=== PATIENT | male | born 1955 | race Two or more races ===

== ENCOUNTER 2017-05-25 11:57 | Inpatient (IN) | payer OTHER ==
--- NOTE | 2017-05-25 16:00 | HP ---
CIWA Score - CIWA Score Nausea/Vomitin Muscle Tremors: 5 Anxiety: 4-Mod. Anxious/Guarded Agitation: 0-Normal Activity Paroxysmal Sweats: 4-Forehead w/Sweat Beads Orientation: 0-Oriented Tacttile Disturbances: 3-Moderate Itch/Numb/Burn Auditory Disturbances: 1-Very Mild Visual Disturbances: 2-Mild Sensitivity Headache: 3-Moderate CIWA-Ar Total Score: 25 Admission ROS BHS - HPI Chief Complaint: I am here to detox from alcohol Allergies/Adverse Reactions: Allergies Allergy/AdvReac Type Severity Reaction Status Date / Time No Known Allergies Allergy Verified 05/25/17 15:21 History of Present Illness: 61 yo male with extensive hx of ETOH dependence and past DM. Reports no DM medications for over a year. Last detox December 2015 and reports was attending AA meetings. Reports visit to the emergency room about two days ago for intoxication and was medicated. Longest period of sobriety 8 months. Exam Limitations: Intoxication - Ebola screening Have you traveled outside of the country in the last 21 days: No (N) Have you had contact with anyone from an Ebola affected area: No Have you been sick,other than usual withdrawal symptoms: No Do you have a fever: No - Review of Systems Constitutional: Chills, Loss of Appetite, Changes in sleep, Unintentional Wgt. Loss EENT: reports: No Symptoms Reported, Other (uses glasses) Cardiac: reports: Lightheadedness GI: reports: Nausea, Poor Appetite, Vomiting (Reports vomitting yesterday 3x) Musculoskeletal: reports: Joint Pain Integumentary: reports: Pruritus Neuro: reports: Paresthesia, Tremors, Other (reports syncope x 2 years ago) Endocrine: reports: Excessive Sweating, Other (chills) Hematology: reports: No Symptoms Reported Psychiatric: reports: Orientated x3, Anxious, Depressed Other Systems: Reviewed and Negative Patient History - Patient Medical History Hx Anemia: No Hx Asthma: No Hx Chronic Obstructive Pulmonary Disease (COPD): No Hx Cancer: No Hx Cardiac Disorders: No Hx Congestive Heart Failure: No Hx Hypertension: No Hx Hypercholesterolemia: No Hx Pacemaker: No HX Cerebrovascular Accident: No Hx Seizures: No Hx Dementia: No Hx Diabetes: Yes ([id number]) Hx Gastrointestinal Disorders: No Hx Liver Disease: No Hx Genitourinary Disorders: No Hx Sexually Transmitted Disorders: No Hx Renal Disease (ESRD): No Hx Thyroid Disease: No Hx Human Immunodeficiency Virus (HIV): No Hx Hepatitis C: No Hx Depression: Yes Hx Suicide Attempt: No Hx Bipolar Disorder: No Hx Schizophrenia: No - Patient Surgical History Past Surgical History: No Hx Neurologic Surgery: No Hx Cataract Extraction: No Hx Cardiac Surgery: No Hx Lung Surgery: No Hx Breast Surgery: No Hx Breast Biopsy: No Hx Abdominal Surgery: No Hx Appendectomy: No Hx Cholecystectomy: No Hx Genitourinary Surgery: No Hx Section: No Hx Orthopedic Surgery: No Anesthesia Reaction: No - PPD History Previous Implant?: Yes (negative chest Chest x- ray 12/2015) Documented Results: Positive w/proof Implanted On Prior [facility] Admission?: Yes PPD to be Administered?: Yes - Reproductive History Patient is a Female of Child Bearing Age (11 -55 yrs old): No (Male ) - Smoking Cessation Smoking history: Current every day smoker Have you smoked in the past 12 months: Yes Aproximately how many cigarettes per day: 10 Hx Chewing Tobacco Use: No Initiated information on smoking cessation: Yes 'Breaking Loose' booklet given: 05/25/17 - Substance & Tx. History Hx Substance Use: Yes Substance Use Type: Cocaine Hx Substance Use Treatment: Yes (Last Detox at [facility] 12/2015) - Substances Abused Alcohol Route: Oral Frequency: Daily Amount used: RUM(2 PINTS) Age of first use: 26 Date of Last Use: 05/23/17 Cocaine Route: Inhalation Amount used: 14 grams Age of first use: 22 Date of Last Use: 04/05/17 Family Disease History - Family Disease History Family Disease History: CA: Father ( Cancer Protate), Mother ( Breast Cancer ), Other: Sister (alcoholic ) Admission Physical Exam S - Vital Signs Vital Signs: Vital Signs - 24 hr 05/25/17 13:15 Temperature 97.8 F Pulse Rate 68 Respiratory 18 Rate Blood Pressure 171/94 - Physical General Appearance: Yes: Alcohol on Breath, Tremorous, Sweating, Anxious HEENTM: Yes: Hearing grossly Normal, Normocephalic, Normal Voice, ARELY, Pharynx Normal Respiratory: Yes: Chest Non-Tender, Lungs Clear, Normal Breath Sounds, No Respiratory Distress, No Accessory Muscle Use Neck: Yes: No masses,lesions,Nodules, Trachea in good position Breast: Yes: Breast Exam Deferred Cardiology: Yes: Regular Rhythm, Regular Rate, S1, S2 Abdominal: Yes: Normal Bowel Sounds, Non Tender, Flat, Soft Genitourinary: Yes: Within Normal Limits (No urinary symptoms reported) Back: Yes: Within Normal Limits Musculoskeletal: Yes: full range of Motion, Gait Steady, Pelvis Stable Neurological: Yes: Within Normal Limits, cover stripper II-XII NML intact, Fully Oriented, Motor Strength 5/5, Normal Mood/Affect, Normal Response Integumentary: Yes: Within Normal Limits, Normal Color, Dry, Warm, Diaphoresis, Other (poor skin turgor) Lymphatic: Yes: Within Normal Limits - Diagnostic (1) Dehydration symptoms Current Visit: Yes Status: Acute (2) Elevated blood pressure reading in office with diagnosis of hypertension Current Visit: Yes Status: Acute (3) Alcohol dependence with withdrawal Current Visit: Yes Status: Acute Qualifiers: Complication of substance-induced condition: uncomplicated Qualified Code(s ): F10.230 - Alcohol dependence with withdrawal, uncomplicated (4) Depression (emotion) Current Visit: No Status: Chronic Qualifiers: Depression Type: major depressive disorder Major depression recurrence: recurrent Active/Remission status: currently active Major depression episode severity: moderate Qualified Code(s): F33.1 - Major depressive disorder, recurrent, moderate Comment: 3 over dose suicidal attempted last attempted 2013 (5) Diabetes mellitus Current Visit: No Status: Chronic Qualifiers: Diabetes mellitus type: type 2 Diabetes mellitus complication status: without complication Diabetes mellitus terminal gauger supervisor insulin use: without [place] [facility] use Qualified Code(s): E11.9 - Type 2 diabetes mellitus without complications (6) Nicotine dependence Current Visit: No Status: Chronic Qualifiers: Nicotine product type: cigarettes Substance use status: uncomplicated Qualified Code(s): F17.210 - Nicotine dependence, cigarettes, uncomplicated (7) History of positive PPD Current Visit: Yes Status: Chronic Cleared for Admission BHS - Detox or Rehab S Level of Care: Medically Managed Detox Regimen/Protocol: Librium S Breath Alcohol Content Breath Alcohol Content: 0 Vital Signs - Vital Signs Vital Signs Refused: No Temperature: 97.8 F Temperature Source: Oral Pulse Rate: 68 Respiratory Rate: 18 Blood Pressure: 171/94 BP Location: Right Arm Blood Pressure Position: Sitting - Height Height: 5 ft 5 in - Weight Weight: 178 kg Weight Measurement Method: Standing Scale Body Mass Index (BMI): 65.2 - Bowel Function Bowel Movement: Yes Urine Drug Screen - Results Drug Screen Negative: No Urine Drug Screen Results: BZO-Benzodiazepines
[2017-05-25] MEDS ORDERED: IBUPROFEN 400 MG TABLET (FP) PO PRN (16:21)
[2017-05-25] MEDS ORDERED: NICOTINE POLACRILEX 2 MG GUM BUC PRN (16:21)
[2017-05-25] MEDS ORDERED: P-EPHED 60MG/TRIPROLIDI 2.5MG TABLET PO PRN (16:21)
[2017-05-25] MEDS ORDERED: chlordiazePOXIDE HCL 25 MG CAPSULE PO PRN (16:21)
[2017-05-25] MEDS ORDERED: MAG HYDROX/AL HYDROX/SIMETH 30 ML UNIT-DOSE CUP PO PRN (16:21)
[2017-05-25] MEDS ORDERED: MAGNESIUM HYDROX 2400MG/30ML ORAL SUSPENSION 30 ML CUP PO PRN (16:21)
[2017-05-25] MEDS ORDERED: chlordiazePOXIDE HCL 25 MG CAPSULE PO ONE (16:21)
[2017-05-25] MEDS ORDERED: MENTHOL/PHENOL 1 EACH UD MM PRN (16:21)
[2017-05-25] MEDS ORDERED: hydrOXYzine PAMOATE 50 MG CAPSULE (FP) PO PRN (16:21)
[2017-05-25] MEDS ORDERED: ACETAMINOPHEN 325 MG TABLET (FP) PO PRN (16:21)
[2017-05-25] MEDS ORDERED: LOPERAMIDE HCL 2 MG CAPSULE PO PRN (16:21)
[2017-05-25] MEDS ORDERED: MAGNESIUM CITRATE 300 ML BOTTLE PO PRN (16:21)
[2017-05-25] MEDS ORDERED: guaiFENesin/D-METHORPHAN HB 10 ML UNIT-DOSE CUPS PO PRN (16:21)
[2017-05-25 16:36] VITALS: BMI 65.2
[2017-05-25] MEDS: INSULIN SLIDING SCALE (NOVOLOG) 1 VIAL SQ SCH (18:01)
[2017-05-25] MEDS: NICOTINE 14 MG/24 HOURS TOPICAL PATCH TD SCH (18:03)
[2017-05-25] MEDS: THIAMINE HCL 100 MG TABLET (FP) PO SCH (22:25)
[2017-05-25] MEDS: chlordiazePOXIDE HCL 25 MG CAPSULE PO SCH ×2 (22:25→22:28)
[2017-05-26] MEDS ORDERED: chlordiazePOXIDE HCL 25 MG CAPSULE PO PRN (00:35)
[2017-05-26] MEDS: chlordiazePOXIDE HCL 25 MG CAPSULE PO SCH ×5 (01:30→22:22)
[2017-05-26] MEDS ORDERED: chlordiazePOXIDE HCL 25 MG CAPSULE PO SCH (05:00)
[2017-05-26] MEDS: INSULIN SLIDING SCALE (NOVOLOG) 1 VIAL SQ SCH ×2 (06:26→17:44)
--- NOTE | 2017-05-26 07:16 | CONSULT ---
[facility] Psychiatric Consult - Data Date of interview: 05/26/17 Admission source: A friend from meeting Identifying data: Mr Reinoso is a 61 years old single male, unemployed, domiciled seeking detox treatment for alcohol and cocaine Substance Abuse History: Reports history of alcohol and cocaine use. He started using cocaine at age 22 and drinking alcohol at 26, consumes 14 grams of cocaine and 2 pints of rum daily. Last drank alcohol on 05/24/17 and used cocaine on 04/05/17 Medical History: Significant for type 2 diabetes mellitus and treament for prophylactic treament for TB. Smokes 10 cigarettes daily. Psychiatric History: Denies history of previous psychiatric treatment Physical/Sexual Abuse/Trauma History: Denies history of verbal, physical or sexual abuse as well as DV relationship Additional Comment: Reports history multiple previous misdemeanor arrests. Denies being on parole/probation at present Mental Status Exam - Mental Status Exam Alert and Oriented to: Time, Place, Person Cognitive Function: Fair Patient Appearance: Well Groomed Mood: Hopeful, Euthymic Patient Behavior: Cooperative Speech Pattern: Clear Voice Loudness: Normal Thought Process: Intact, Goal Oriented Thought Disorder: Not Present Hallucinations: Denies Suicidal Ideation: Denies Homicidal Ideation: Denies Insight/Judgement: Poor Sleep: Poorly Appetite: Good Muscle strength/Tone: Normal Gait/Station: Normal Psychiatric Findings - Problem List ([place] 1, 2,3) (1) Alcohol dependence with withdrawal Current Visit: Yes Status: Acute Qualifiers: Complication of substance-induced condition: uncomplicated Qualified Code(s ): F10.230 - Alcohol dependence with withdrawal, uncomplicated (2) Nicotine dependence Current Visit: No Status: Chronic Qualifiers: Nicotine product type: cigarettes Substance use status: uncomplicated Qualified Code(s): F17.210 - Nicotine dependence, cigarettes, uncomplicated (3) Elevated blood pressure reading in office with diagnosis of hypertension Current Visit: Yes Status: Acute (4) History of positive PPD Current Visit: Yes Status: Chronic (5) Diabetes mellitus Current Visit: No Status: Chronic Qualifiers: Diabetes mellitus type: type 2 Diabetes mellitus complication status: without complication Diabetes mellitus fdc insulin use: without fdc use Qualified Code(s): E11.9 - Type 2 diabetes mellitus without complications (6) Lyme disease Current Visit: No Status: Chronic Comment: treated (7) Cocaine dependence Current Visit: Yes Status: Acute - Initial Treatment Plan Initial Treatment Plan: Continue inpatient detoxification
[2017-05-26] MEDS: PRENATAL VITAMINS W/ FOLIC ACID TABLET (FP) PO SCH (10:12)
[2017-05-26] MEDS: NICOTINE 14 MG/24 HOURS TOPICAL PATCH TD SCH (10:13)
[2017-05-26 10:24] LABS: HEMATOCRIT 47.7 % (35.4-49); HEMOGLOBIN 15.6 GM/dL (11.7-16.9); MCH 31.6 pg (25.7-33.7); MCHC 32.7 g/dl (32.0-35.9); MEAN CELL VOLUME 96.7 fl (80-96); PLATELET COUNT 203 K/MM3 (134-434); RBC 4.94 M/mm3 (4.00-5.60); RDW 13.7 % (11.9-15.9); WHITE BLOOD COUNT 5.2 K/mm3 (4.0-10.0)
[2017-05-26 10:37] LABS: CHLORIDE 103 mmol/L (98-107); POTASSIUM 3.8 mmol/L (3.5-5.1); SODIUM 140 mmol/L (136-145)
[2017-05-26 10:45] LABS: ALK PHOS 74 U/L (45-117); ANION GAP 7 (8-16); BILIRUBIN,TOTAL 0.8 mg/dL (0.2-1.0); BLOOD UREA NITROGEN 11 mg/dL (7-18); CALCIUM 9.1 mg/dL (8.5-10.1); CO2 30 mmol/L (21-32); CREATININE 0.8 mg/dL (0.7-1.3); GLUCOSE,RANDOM 84 mg/dL (74-106); SGOT/AST 138 U/L (15-37); SGPT/ALT 160 U/L (12-78); TOT PROT 8.8 g/dl (6.4-8.2)
[2017-05-26 12:35] LABS: URINE APPEARANCE CLEAR; URINE BILIRUBIN NEGATIVE (NEGATIVE); URINE BLOOD NEGATIVE (NEGATIVE); URINE COLOR YELLOW; URINE GLUCOSE (UA) NEGATIVE (NEGATIVE); URINE KETONE NEGATIVE (NEGATIVE); URINE LEUK ESTERASE NEGATIVE (NEGATIVE); URINE NITRITE NEGATIVE (NEGATIVE); URINE PROTEIN NEGATIVE (NEGATIVE); URINE UROBILINOGEN NEGATIVE mg/dL (0.2-1.0)
--- NOTE | 2017-05-26 12:52 | EKG ---
Test Reason : Blood Pressure : / mmHG Vent. Rate : 068 BPM Atrial Rate : 068 BPM P-R Int : 150 ms QRS Dur : 092 ms QT Int : 408 ms P-R-T Axes : 063 000 050 degrees QTc Int : 433 ms NORMAL SINUS RHYTHM NORMAL ECG NO PREVIOUS ECGS AVAILABLE Confirmed by Barrington Wilson ([id number]) on 05/26/2017 12:52:22 PM Referred By: Confirmed By:Barrington Wilson
--- NOTE | 2017-05-26 14:07 | PN ---
S CIWA - CIWA Score Nausea/Vomitin Muscle Tremors: 3 Anxiety: 4-Mod. Anxious/Guarded Agitation: 4-Moderately Restless Paroxysmal Sweats: 4-Forehead w/Sweat Beads Orientation: 0-Oriented Tacttile Disturbances: 0-None Auditory Disturbances: 0-None Visual Disturbances: 0-None Headache: 0-None Present CIWA-Ar Total Score: 17 BHS Progress Note (SOAP) Subjective: Sweating, anxious, restless Objective: 05/26/17 14:06 Last Vital Signs Temp Pulse Resp BP Pulse Ox 97.9 F 103 H 18 122/83 05/26/17 13:08 05/26/17 13:08 05/26/17 13:08 05/26/17 13:08 Laboratory Tests 05/25/17 05/25/17 05/26/17 15:44 17:56 05:20 WBC RBC Hgb Hct MCV MCH MCHC RDW Plt Count MPV Sodium Potassium Chloride Carbon Dioxide Anion Gap BUN Creatinine Creat Clearance w eGFR POC Glucometer 148 106 116 Random Glucose Calcium Total Bilirubin AST ALT Alkaline Phosphatase Total Protein Albumin Urine Color Urine Appearance Urine pH Ur Specific [place] Urine Protein Urine Glucose (UA) Urine Ketones Urine Blood Urine Nitrite Urine Bilirubin Urine Urobilinogen Ur Leukocyte Esterase RPR Titer HIV 1&2 Antibody Screen HIV P24 Antigen 05/26/17 05/26/17 05/26/17 07:40 07:40 07:40 WBC 5.2 RBC 4.94 Hgb 15.6 D Hct 47.7 MCV 96.7 H MCH 31.6 MCHC 32.7 RDW 13.7 D Plt Count 203 D MPV 8.0 D Sodium 140 Potassium 3.8 Chloride 103 Carbon Dioxide 30 Anion Gap 7 L BUN 11 D Creatinine 0.8 Creat Clearance w eGFR > 60 POC Glucometer Random Glucose 84 Calcium 9.1 Total Bilirubin 0.8 D AST 138 H D ALT 160 H D Alkaline Phosphatase 74 D Total Protein 8.8 H Albumin 4.0 Urine Color Urine Appearance Urine pH Ur Specific [place] Urine Protein Urine Glucose (UA) Urine Ketones Urine Blood Urine Nitrite Urine Bilirubin Urine Urobilinogen Ur Leukocyte Esterase RPR Titer Nonreactive HIV 1&2 Antibody Screen HIV P24 Antigen 05/26/17 05/26/17 08:00 10:56 WBC RBC Hgb Hct MCV MCH MCHC RDW Plt Count MPV Sodium Potassium Chloride Carbon Dioxide Anion Gap BUN Creatinine Creat Clearance w eGFR POC Glucometer Random Glucose Calcium Total Bilirubin AST ALT Alkaline Phosphatase Total Protein Albumin Urine Color Yellow Urine Appearance Clear Urine pH 7.0 Ur Specific [place] 1.011 Urine Protein Negative Urine Glucose (UA) Negative Urine Ketones Negative Urine Blood Negative Urine Nitrite Negative Urine Bilirubin Negative Urine Urobilinogen Negative Ur Leukocyte Esterase Negative RPR Titer HIV 1&2 Antibody Screen Negative HIV P24 Antigen Negative Labs noted Assessment: 05/26/17 14:07 Withdrawal symptoms Plan: Continue detox
[2017-05-26] MEDS: THIAMINE HCL 100 MG TABLET (FP) PO SCH (22:22)
[2017-05-27] MEDS ORDERED: chlordiazePOXIDE 5 MG CAPSULE PO SCH (05:00)
[2017-05-27] MEDS: chlordiazePOXIDE HCL 25 MG CAPSULE PO SCH ×3 (05:16→17:08)
[2017-05-27] MEDS: INSULIN SLIDING SCALE (NOVOLOG) 1 VIAL SQ SCH ×2 (06:23→16:33)
[2017-05-27] MEDS: NICOTINE 14 MG/24 HOURS TOPICAL PATCH TD SCH (10:19)
[2017-05-27] MEDS: PRENATAL VITAMINS W/ FOLIC ACID TABLET (FP) PO SCH (10:20)
--- NOTE | 2017-05-27 12:08 | PN ---
[facility] CIWA - CIWA Score Nausea/Vomitin-No Nausea/No Vomiting Muscle Tremors: 2 Anxiety: 4-Mod. Anxious/Guarded Agitation: 3 Paroxysmal Sweats: 3 Orientation: 0-Oriented Tacttile Disturbances: 2-Mild Itch/Numbness/Burn Auditory Disturbances: 0-None Visual Disturbances: 3-Moderate Sensitivity Headache: 0-None Present CIWA-Ar Total Score: 17 S Progress Note (SOAP) Subjective: Body Aches, Sweating, Fatigue. Objective: PT. A & O X 3, OBSERVED AMBULATING ON UNIT. NO ACUTE DISTRESS. 05/27/17 12:04 Vital Signs Temperature 97.8 F 05/27/17 09:25 Pulse Rate 98 H 05/27/17 09:25 Respiratory Rate 18 05/27/17 09:25 Blood Pressure 130/83 05/27/17 09:25 O2 Sat by Pulse Oximetry (%) Laboratory Tests 05/25/17 05/25/17 05/26/17 15:44 17:56 05:20 WBC RBC Hgb Hct MCV MCH MCHC RDW Plt Count MPV Sodium Potassium Chloride Carbon Dioxide Anion Gap BUN Creatinine Creat Clearance w eGFR POC Glucometer 148 106 116 Random Glucose Calcium Total Bilirubin AST ALT Alkaline Phosphatase Total Protein Albumin Urine Color Urine Appearance Urine pH Ur Specific [place] Urine Protein Urine Glucose (UA) Urine Ketones Urine Blood Urine Nitrite Urine Bilirubin Urine Urobilinogen Ur Leukocyte Esterase RPR Titer HIV 1&2 Antibody Screen HIV P24 Antigen 05/26/17 05/26/17 05/26/17 07:40 07:40 07:40 WBC 5.2 RBC 4.94 Hgb 15.6 D Hct 47.7 MCV 96.7 H MCH 31.6 MCHC 32.7 RDW 13.7 D Plt Count 203 D MPV 8.0 D Sodium 140 Potassium 3.8 Chloride 103 Carbon Dioxide 30 Anion Gap 7 L BUN 11 D Creatinine 0.8 Creat Clearance w eGFR > 60 POC Glucometer Random Glucose 84 Calcium 9.1 Total Bilirubin 0.8 D AST 138 H D ALT 160 H D Alkaline Phosphatase 74 D Total Protein 8.8 H Albumin 4.0 Urine Color Urine Appearance Urine pH Ur Specific [place] Urine Protein Urine Glucose (UA) Urine Ketones Urine Blood Urine Nitrite Urine Bilirubin Urine Urobilinogen Ur Leukocyte Esterase RPR Titer Nonreactive HIV 1&2 Antibody Screen HIV P24 Antigen 0105/26/17 05/26/17 08:00 10:56 16:17 WBC RBC Hgb Hct MCV MCH MCHC RDW Plt Count MPV Sodium Potassium Chloride Carbon Dioxide Anion Gap BUN Creatinine Creat Clearance w eGFR POC Glucometer 111 Random Glucose Calcium Total Bilirubin AST ALT Alkaline Phosphatase Total Protein Albumin Urine Color Yellow Urine Appearance Clear Urine pH 7.0 Ur Specific [place] 1.011 Urine Protein Negative Urine Glucose (UA) Negative Urine Ketones Negative Urine Blood Negative Urine Nitrite Negative Urine Bilirubin Negative Urine Urobilinogen Negative Ur Leukocyte Esterase Negative RPR Titer HIV 1&2 Antibody Screen Negative HIV P24 Antigen Negative 05/27/17 05:15 WBC RBC Hgb Hct MCV MCH MCHC RDW Plt Count MPV Sodium Potassium Chloride Carbon Dioxide Anion Gap BUN Creatinine Creat Clearance w eGFR POC Glucometer 112 Random Glucose Calcium Total Bilirubin AST ALT Alkaline Phosphatase Total Protein Albumin Urine Color Urine Appearance Urine pH Ur Specific [place] Urine Protein Urine Glucose (UA) Urine Ketones Urine Blood Urine Nitrite Urine Bilirubin Urine Urobilinogen Ur Leukocyte Esterase RPR Titer HIV 1&2 Antibody Screen HIV P24 Antigen LABS NOTED. HCV AB RESULT PENDING. 05/27/17 12:06 Assessment: 05/27/17 12:04 WITHDRAWAL SYMPTOMS. Plan: CONTINUE DETOX. REPEAT AST, ALT TOMORROW AM FOR ELEVATED ADMISSION LEVELS. INCREASE DAILY PO FLUID INTAKE.
[2017-05-27] MEDS: THIAMINE HCL 100 MG TABLET (FP) PO SCH (22:16)
[2017-05-27] MEDS: chlordiazePOXIDE 5 MG CAPSULE PO SCH (22:17)
[2017-05-28] MEDS ORDERED: chlordiazePOXIDE HCL 10 MG CAPSULE PO SCH (05:00)
[2017-05-28] MEDS: chlordiazePOXIDE 5 MG CAPSULE PO SCH ×3 (05:38→17:17)
[2017-05-28] MEDS: INSULIN SLIDING SCALE (NOVOLOG) 1 VIAL SQ SCH ×2 (06:28→16:28)
[2017-05-28] MEDS: PRENATAL VITAMINS W/ FOLIC ACID TABLET (FP) PO SCH (10:07)
[2017-05-28] MEDS: NICOTINE 14 MG/24 HOURS TOPICAL PATCH TD SCH (10:09)
[2017-05-28 12:06] LABS: SGOT/AST 176 U/L (15-37); SGPT/ALT 234 U/L (12-78)
--- NOTE | 2017-05-28 13:28 | PN ---
BHS Progress Note (SOAP) Subjective: Fatigue, Interrupted Sleep, Sweating. Objective: PT. A & O X 3, OBSERVED AMBULATING ON UNIT. NO ACUTE DISTRESS. 05/28/17 13:26 Vital Signs Temperature 97 F L 05/28/17 13:20 Pulse Rate 96 H 05/28/17 13:20 Respiratory Rate 18 05/28/17 13:20 Blood Pressure 133/91 05/28/17 13:20 O2 Sat by Pulse Oximetry (%) Laboratory Tests 05/25/17 05/25/17 05/26/17 15:44 17:56 05:20 WBC RBC Hgb Hct MCV MCH MCHC RDW Plt Count MPV Sodium Potassium Chloride Carbon Dioxide Anion Gap BUN Creatinine Creat Clearance w eGFR POC Glucometer 148 106 116 Random Glucose Calcium Total Bilirubin AST ALT Alkaline Phosphatase Total Protein Albumin Urine Color Urine Appearance Urine pH Ur Specific [place] Urine Protein Urine Glucose (UA) Urine Ketones Urine Blood Urine Nitrite Urine Bilirubin Urine Urobilinogen Ur Leukocyte Esterase RPR Titer Hepatitis C Antibody HIV 1&2 Antibody Screen HIV P24 Antigen 05/26/17 05/26/17 05/26/17 07:40 07:40 07:40 WBC 5.2 RBC 4.94 Hgb 15.6 D Hct 47.7 MCV 96.7 H MCH 31.6 MCHC 32.7 RDW 13.7 D Plt Count 203 D MPV 8.0 D Sodium 140 Potassium 3.8 Chloride 103 Carbon Dioxide 30 Anion Gap 7 L BUN 11 D Creatinine 0.8 Creat Clearance w eGFR > 60 POC Glucometer Random Glucose 84 Calcium 9.1 Total Bilirubin 0.8 D AST 138 H D ALT 160 H D Alkaline Phosphatase 74 D Total Protein 8.8 H Albumin 4.0 Urine Color Urine Appearance Urine pH Ur Specific [place] Urine Protein Urine Glucose (UA) Urine Ketones Urine Blood Urine Nitrite Urine Bilirubin Urine Urobilinogen Ur Leukocyte Esterase RPR Titer Hepatitis C Antibody >11.0 H HIV 1&2 Antibody Screen HIV P24 Antigen 05/26/17 05/26/17 05/26/17 07:40 08:00 10:56 WBC RBC Hgb Hct MCV MCH MCHC RDW Plt Count MPV Sodium Potassium Chloride Carbon Dioxide Anion Gap BUN Creatinine Creat Clearance w eGFR POC Glucometer Random Glucose Calcium Total Bilirubin AST ALT Alkaline Phosphatase Total Protein Albumin Urine Color Yellow Urine Appearance Clear Urine pH 7.0 Ur Specific [place] 1.011 Urine Protein Negative Urine Glucose (UA) Negative Urine Ketones Negative Urine Blood Negative Urine Nitrite Negative Urine Bilirubin Negative Urine Urobilinogen Negative Ur Leukocyte Esterase Negative RPR Titer Nonreactive Hepatitis C Antibody HIV 1&2 Antibody Screen Negative HIV P24 Antigen Negative 05/26/17 05/27/17 05/27/17 16:17 05:15 16:19 WBC RBC Hgb Hct MCV MCH MCHC RDW Plt Count MPV Sodium Potassium Chloride Carbon Dioxide Anion Gap BUN Creatinine Creat Clearance w eGFR POC Glucometer 111 112 121 Random Glucose Calcium Total Bilirubin AST ALT Alkaline Phosphatase Total Protein Albumin Urine Color Urine Appearance Urine pH Ur Specific [place] Urine Protein Urine Glucose (UA) Urine Ketones Urine Blood Urine Nitrite Urine Bilirubin Urine Urobilinogen Ur Leukocyte Esterase RPR Titer Hepatitis C Antibody HIV 1&2 Antibody Screen HIV P24 Antigen 05/28/17 05/28/17 05:37 07:10 WBC RBC Hgb Hct MCV MCH MCHC RDW Plt Count MPV Sodium Potassium Chloride Carbon Dioxide Anion Gap BUN Creatinine Creat Clearance w eGFR POC Glucometer 91 Random Glucose Calcium Total Bilirubin AST 176 H D ALT 234 H D Alkaline Phosphatase Total Protein Albumin Urine Color Urine Appearance Urine pH Ur Specific [place] Urine Protein Urine Glucose (UA) Urine Ketones Urine Blood Urine Nitrite Urine Bilirubin Urine Urobilinogen Ur Leukocyte Esterase RPR Titer Hepatitis C Antibody HIV 1&2 Antibody Screen HIV P24 Antigen LABS NOTED. Assessment: 05/28/17 13:26 WITHDRAWAL SYMPTOMS. Plan: CONTINUE DETOX. PATIENT MADE AWARE OF POSITIVE HCV AB RESULT. PATIENT STATES THAT HE THINKS THAT HE HAS BEEN TOLD IN THE PAST THAT HE HAS HEPATITIS C BY A MEDICAL PROVIDER , ALTHOUGH HE CANNOT RECALL FOR CERTAIN. PATIENT REPORTS THAT HE RECENTLY MISSED MEDICAL APPOINTMENT WITH MEDICAL PROVIDER AT [facility], BUT THAT HE WILL RETURN TO [facility] TO SEE MEDICAL PROVIDER AFTER DISCHARGE FROM DETOX. COPIES OF ALL LAB WORK DRAWN (INCLUDING HCV RESULT) WHILE ADMITTED FOR DETOX GIVEN TO PATIENT.
[2017-05-28] MEDS: THIAMINE HCL 100 MG TABLET (FP) PO SCH (22:14)
[2017-05-28] MEDS: chlordiazePOXIDE HCL 10 MG CAPSULE PO SCH (22:14)
[2017-05-29] MEDS: chlordiazePOXIDE HCL 10 MG CAPSULE PO SCH (05:11)
[2017-05-29] MEDS: INSULIN SLIDING SCALE (NOVOLOG) 1 VIAL SQ SCH (06:03)
[2017-05-29 09:33] VITALS: BP 150/91; PULSE 106; TEMP 97.5
--- NOTE | 2017-05-29 14:26 | DS ---
[facility] Detox Discharge Summary Admission Date: 05/25/17 Discharge Date: 05/29/17 - History Present History: Alcohol Dependence, Cocaine Dependence Additional Comments: PATIENT GOING HOME. PATIENT ADVISED TO CONSIDER LOCAL 12-STEP / NA / AA OUTPATIENT SUPPORT GROUPS FOR AFTERCARE. PATIENT ALSO ADVISED TO FOLLOW-UP WITH [facility] AT [facility] IN [place], [place] AFTER DISCHARGE FROM DETOX FOR MEDICAL ASSESSMENT AND AND FOR POSITIVE HCV AB RESULT OBTAINED WHILE ADMITTED FOR DETOX. PATIENT WAS DISCHARGED FROM DETOX UNIT IN STABLE MEDICAL CONDITION. Pertinent Past History: History of HTN, Type II DM, History of positive PPD (Treated), Nicotine Dependence, History of Lyme Disease, Dehydration, Depression. - Physical Exam Results Vital Signs: Vital Signs Temperature 97.5 F L 05/29/17 09:32 Pulse Rate 106 H 05/29/17 09:32 Respiratory Rate 18 05/29/17 09:32 Blood Pressure 150/91 05/29/17 09:32 O2 Sat by Pulse Oximetry (%) Pertinent Admission Physical Exam Findings: WITHDRAWAL SYMPTOMS. Laboratory Tests 05/25/17 05/25/17 05/26/17 15:44 17:56 05:20 WBC RBC Hgb Hct MCV MCH MCHC RDW Plt Count MPV Sodium Potassium Chloride Carbon Dioxide Anion Gap BUN Creatinine Creat Clearance w eGFR POC Glucometer 148 106 116 Random Glucose Calcium Total Bilirubin AST ALT Alkaline Phosphatase Total Protein Albumin Urine Color Urine Appearance Urine pH Ur Specific [place] Urine Protein Urine Glucose (UA) Urine Ketones Urine Blood Urine Nitrite Urine Bilirubin Urine Urobilinogen Ur Leukocyte Esterase RPR Titer Hepatitis C Antibody HIV 1&2 Antibody Screen HIV P24 Antigen 05/26/17 05/26/17 05/26/17 07:40 07:40 07:40 WBC 5.2 RBC 4.94 Hgb 15.6 D Hct 47.7 MCV 96.7 H MCH 31.6 MCHC 32.7 RDW 13.7 D Plt Count 203 D MPV 8.0 D Sodium 140 Potassium 3.8 Chloride 103 Carbon Dioxide 30 Anion Gap 7 L BUN 11 D Creatinine 0.8 Creat Clearance w eGFR > 60 POC Glucometer Random Glucose 84 Calcium 9.1 Total Bilirubin 0.8 D AST 138 H D ALT 160 H D Alkaline Phosphatase 74 D Total Protein 8.8 H Albumin 4.0 Urine Color Urine Appearance Urine pH Ur Specific [place] Urine Protein Urine Glucose (UA) Urine Ketones Urine Blood Urine Nitrite Urine Bilirubin Urine Urobilinogen Ur Leukocyte Esterase RPR Titer Hepatitis C Antibody >11.0 H HIV 1&2 Antibody Screen HIV P24 Antigen 05/26/17 05/26/17 05/26/17 07:40 08:00 10:56 WBC RBC Hgb Hct MCV MCH MCHC RDW Plt Count MPV Sodium Potassium Chloride Carbon Dioxide Anion Gap BUN Creatinine Creat Clearance w eGFR POC Glucometer Random Glucose Calcium Total Bilirubin AST ALT Alkaline Phosphatase Total Protein Albumin Urine Color Yellow Urine Appearance Clear Urine pH 7.0 Ur Specific [place] 1.011 Urine Protein Negative Urine Glucose (UA) Negative Urine Ketones Negative Urine Blood Negative Urine Nitrite Negative Urine Bilirubin Negative Urine Urobilinogen Negative Ur Leukocyte Esterase Negative RPR Titer Nonreactive Hepatitis C Antibody HIV 1&2 Antibody Screen Negative HIV P24 Antigen Negative 05/26/17 05/27/17 05/27/17 16:17 05:15 16:19 WBC RBC Hgb Hct MCV MCH MCHC RDW Plt Count MPV Sodium Potassium Chloride Carbon Dioxide Anion Gap BUN Creatinine Creat Clearance w eGFR POC Glucometer 111 112 121 Random Glucose Calcium Total Bilirubin AST ALT Alkaline Phosphatase Total Protein Albumin Urine Color Urine Appearance Urine pH Ur Specific [place] Urine Protein Urine Glucose (UA) Urine Ketones Urine Blood Urine Nitrite Urine Bilirubin Urine Urobilinogen Ur Leukocyte Esterase RPR Titer Hepatitis C Antibody HIV 1&2 Antibody Screen HIV P24 Antigen 05/28/17 05/28/17 05/28/17 05:37 07:10 16:17 WBC RBC Hgb Hct MCV MCH MCHC RDW Plt Count MPV Sodium Potassium Chloride Carbon Dioxide Anion Gap BUN Creatinine Creat Clearance w eGFR POC Glucometer 91 97 Random Glucose Calcium Total Bilirubin AST 176 H D ALT 234 H D Alkaline Phosphatase Total Protein Albumin Urine Color Urine Appearance Urine pH Ur Specific [place] Urine Protein Urine Glucose (UA) Urine Ketones Urine Blood Urine Nitrite Urine Bilirubin Urine Urobilinogen Ur Leukocyte Esterase RPR Titer Hepatitis C Antibody HIV 1&2 Antibody Screen HIV P24 Antigen 05/29/17 05:11 WBC RBC Hgb Hct MCV MCH MCHC RDW Plt Count MPV Sodium Potassium Chloride Carbon Dioxide Anion Gap BUN Creatinine Creat Clearance w eGFR POC Glucometer 100 Random Glucose Calcium Total Bilirubin AST ALT Alkaline Phosphatase Total Protein Albumin Urine Color Urine Appearance Urine pH Ur Specific [place] Urine Protein Urine Glucose (UA) Urine Ketones Urine Blood Urine Nitrite Urine Bilirubin Urine Urobilinogen Ur Leukocyte Esterase RPR Titer Hepatitis C Antibody HIV 1&2 Antibody Screen HIV P24 Antigen LABS NOTED. - Treatment Hospital Course: Detox Protocol Followed, Detoxed Safely, Responded well, Discharged Condition Good Patient has Accepted a Rehab Referral to: PT GOING HOME, ADVISED TO CONSIDER LOCAL 12-STEP/NA/AA SUPPORT GROUPS. - Medication Discharge Medications: Ambulatory Orders NK [No Known Home Medication] 05/25/17 - Diagnosis (1) Alcohol dependence with withdrawal Status: Acute Qualifiers: Complication of substance-induced condition: uncomplicated Qualified Code(s ): F10.230 - Alcohol dependence with withdrawal, uncomplicated (2) Elevated blood pressure reading in office with diagnosis of hypertension Status: Acute (3) History of positive PPD Status: Chronic (4) Nicotine dependence Status: Chronic Qualifiers: Nicotine product type: cigarettes Substance use status: uncomplicated Qualified Code(s): F17.210 - Nicotine dependence, cigarettes, uncomplicated (5) Dehydration symptoms Status: Acute (6) Diabetes mellitus Status: Chronic Qualifiers: Diabetes mellitus type: type 2 Diabetes mellitus complication status: without complication Diabetes mellitus senior living insulin use: without meterman use Qualified Code(s): E11.9 - Type 2 diabetes mellitus without complications (7) Depression (emotion) Status: Acute Qualifiers: Depression Type: major depressive disorder Major depression recurrence: recurrent Active/Remission status: currently active Major depression episode severity: moderate Qualified Code(s): F33.1 - Major depressive disorder, recurrent, moderate (8) Cocaine dependence Status: Chronic Qualifiers: Substance use status: uncomplicated Qualified Code(s): F14.20 - Cocaine dependence, uncomplicated (9) Lyme disease Status: Chronic - AMA Did Patient Leave Against Medical Advice: No
== END 2017-05-29 09:37 | disposition home or self-care (01) | DRG 774 ==
LOC: YASAS 11:57 → Y3N 15:53
PROVIDERS: ADMIT Internal Medicine; ATTEND Internal Medicine
PROC: HZ2ZZZZ Detoxification Services for Substance Abuse Treatment (ICD-10-PCS; principal; 2017-05-25)
DX: F10.230 Alcohol dependence with withdrawal, uncomplicated (principal); F14.20 Cocaine dependence, uncomplicated; F17.210 Nicotine dependence, cigarettes, uncomplicated; F33.1 Major depressive disorder, recurrent, moderate; E11.9 Type 2 diabetes mellitus without complications; E86.0 Dehydration; I10 Essential (primary) hypertension; R76.11 Nonspecific reaction to tuberculin skin test without active tuberculosis
CPT/HCPCS: 36415; 71046-TC; 80053; 81003; 82962; 84450; 84460; 85027; 86593; 86803; 87389; 87522; 93005; 93010

== ENCOUNTER 2024-01-20 19:07 | Inpatient (IN) | payer SELFPAY ==
[2024-01-20 21:49] VITALS: BMI 27.1
[2024-01-20] MEDS ORDERED: NALOXONE HCL 0.4 MG/ML VIAL IM PRN (23:20)
[2024-01-20] MEDS ORDERED: MAG HYDROX/AL HYDROX/SIMETH 30 ML UNIT-DOSE CUP PO PRN (23:20)
[2024-01-20] MEDS ORDERED: POLYETHYLENE GLYCOL (HEALTHYLAX) 3350 17 GM PACKET PO PRN (23:20)
[2024-01-20] MEDS ORDERED: BENZONATATE 200 MG CAPSULE PO PRN (23:20)
[2024-01-20] MEDS ORDERED: guaiFENesin 600 MG TABLET.ER (FP) PO PRN (23:20)
[2024-01-20] MEDS ORDERED: DICYCLOMINE HCL 10 MG CAPSULE PO PRN (23:20)
[2024-01-20] MEDS ORDERED: ONDANSETRON *ODT* 4 MG TABLET SL PRN (23:20)
[2024-01-20] MEDS ORDERED: IBUPROFEN 600 MG TABLET (FP) PO PRN (23:20)
[2024-01-20] MEDS ORDERED: MAGNESIUM HYDROX 2400MG/30ML ORAL SUSPENSION 30 ML CUP PO PRN (23:20)
[2024-01-20] MEDS ORDERED: BISMUTH SUBSALICYLATE 524 MG/30 ML PO PRN (23:20)
[2024-01-20] MEDS ORDERED: NALOXONE (NARCAN) HCL 4 MG/0.1 ML SPRAY NS PRN (23:20)
[2024-01-20] MEDS ORDERED: LOPERAMIDE HCL 2 MG CAPSULE PO PRN (23:20)
[2024-01-20] MEDS ORDERED: ACETAMINOPHEN 325 MG TABLET (FP) PO PRN (23:20)
[2024-01-20] MEDS ORDERED: BENZOCAINE/MENTHOL (CHLORASEPTIC ) LOZENGE MM PRN (23:20)
[2024-01-20] MEDS ORDERED: NICOTINE POLACRILEX 2 MG GUM BUC PRN (23:20)
[2024-01-21] MEDS: IBUPROFEN 400 MG TABLET (FP) PO PRN (02:10)
[2024-01-21] MEDS: METHOCARBAMOL 500 MG TABLET PO PRN (02:10)
[2024-01-21] MEDS: hydrOXYzine PAMOATE 25 MG CAPSULE (FP) PO PRN (02:10)
[2024-01-21] MEDS: cloNIDine HCL 0.1 MG TABLET PO ONE (02:36)
[2024-01-21] MEDS ORDERED: LORazepam 1 MG TABLET PO PRN (08:39)
[2024-01-21] MEDS: LORazepam 2 MG TABLET PO ONE (09:33)
[2024-01-21] MEDS: PRENATAL VITAMINS W/ FOLIC ACID TABLET (FP) PO SCH (10:18)
[2024-01-21] MEDS: NICOTINE 14 MG/24 HOURS TOPICAL PATCH TD SCH (10:18)
[2024-01-21] MEDS: LISINOPRIL 10 MG TABLET PO SCH (10:18)
[2024-01-21] MEDS: INSULIN ASPART SLIDING SCALE (NOVOLOG) 1 VIAL SQ SCH (11:58)
[2024-01-21] MEDS: LORazepam 1 MG TABLET PO SCH (12:18)
[2024-01-21 14:18] LABS: HEMATOCRIT 40.6 % (35.4-49); HEMOGLOBIN 13.7 GM/dL (11.7-16.9); MCH 33.5 pg (25.7-33.7); MCHC 33.7 g/dl (32.0-35.9); MEAN CELL VOLUME 99.5 fl (80-96); MEAN PLT VOLUME 7.4 fl (7.5-11.1); PLATELET COUNT 233 10^3/uL (134-434); RBC 4.08 M/mm3 (4.00-5.60); RDW 12.6 % (11.9-15.9); WHITE BLOOD COUNT 3.9 K/mm3 (4.0-10.0)
[2024-01-21 15:14] LABS: CHLORIDE 100 mmol/L (98-107); POTASSIUM 4.1 mmol/L (3.5-5.1); SODIUM 135 mmol/L (136-145)
[2024-01-21 15:22] LABS: BLOOD UREA NITROGEN 8.6 mg/dL (7-18)
[2024-01-21 15:23] LABS: ANION GAP 6 mmol/L (4-13); CALCIUM 9.2 mg/dL (8.5-10.1); CO2 29 mmol/L (21-32)
[2024-01-21 15:25] LABS: ALBUMIN 3.8 g/dl (3.4-5.0); GLUCOSE,RANDOM 149 mg/dL (74-106)
[2024-01-21 15:26] LABS: CREATININE 0.6 mg/dL (0.55-1.3); SGOT/AST 57 U/L (15-37); SGPT/ALT 53 U/L (13-61)
[2024-01-21 15:27] LABS: BILIRUBIN,TOTAL 0.7 mg/dL (0.2-1); TOT PROT 6.8 g/dl (6.4-8.2)
[2024-01-21 15:29] LABS: ALK PHOS 66 U/L (45-117)
[2024-01-21] MEDS: THIAMINE 100 MG TABLET PO SCH (22:18)
[2024-01-21] MEDS: MELATONIN 5 MG TABLETS PO SCH (22:18)
[2024-01-22] MEDS: cloNIDine HCL 0.1 MG TABLET PO PRN (12:00)
[2024-01-23] MEDS: LORazepam 1 MG TABLET PO SCH (05:43)
[2024-01-24] MEDS ORDERED: LORazepam 0.5 MG TABLET PO PRN
[2024-01-24] MEDS: LORazepam 0.5 MG TABLET PO SCH (05:36)
[2024-01-24] MEDS: LISINOPRIL 10 MG TABLET PO ONE (12:08)
[2024-01-25] MEDS: LORazepam 0.5 MG TABLET PO ONE (05:48)
[2024-01-25 06:29] VITALS: RESP 16
[2024-01-25 09:04] VITALS: BP 136/84; PULSE 86; TEMP 98.4
[2024-01-25] MEDS: LISINOPRIL 20 MG TABLET PO SCH (09:34)
== END 2024-01-25 10:05 | disposition home or self-care (01) | DRG 774 ==
LOC: YASAS 19:07 → Y6N 01-21 01:32 → Y3N 01-21 01:40
PROVIDERS: ADMIT Allergy & Immunology; ATTEND Surgery
PROC: HZ2ZZZZ Detoxification Services for Substance Abuse Treatment (ICD-10-PCS; principal; 2024-01-21)
DX: F10.230 Alcohol dependence with withdrawal, uncomplicated (principal); F14.20 Cocaine dependence, uncomplicated; F17.210 Nicotine dependence, cigarettes, uncomplicated; E11.9 Type 2 diabetes mellitus without complications; I10 Essential (primary) hypertension; Z86.11 Personal history of tuberculosis; Z86.19 Personal history of other infectious and parasitic diseases
CPT/HCPCS: 36415; 71046-TC-FY; 80053; 80305; 80307; 82962; 83036; 85027; 86593; 86780; 93005; 93010